=== PATIENT | male | born 1990 | race African-American/Black ===

== ENCOUNTER 2023-11-29 13:55 | Inpatient (IN) | payer OTHER ==
[~2023-11-29] VITALS: Ht 172.7 cm; Wt 93.0 kg
[2023-11-29] MEDS ORDERED: HYDROCODONE/APAP 10/325MG TABLET ONE (14:38)
[2023-11-29] MEDS: HYDROCODONE/APAP 10/325MG TABLET PO ONE (14:42)
[2023-11-29] MEDS ORDERED: MAGNESIUM HYDROXIDE 30 ML UDC PO PRN (17:30)
[2023-11-29] MEDS ORDERED: ZOLPIDEM TARTRATE 5 MG TABLET PO PRN (17:30)
[2023-11-29] MEDS ORDERED: ONDANSETRON HCL/PF 4 MG/2 ML VIAL IVP PRN (17:30)
[2023-11-29] MEDS ORDERED: Z GUARD REMEDY 4 OZ OINT TP PRN (17:30)
[2023-11-29 17:55] LABS: BASOPHILS % (AUTO) 0.4 % (0.0-2.0); EOSINOPHILS % (AUTO) 0.5 % (0.0-6.0); HEMATOCRIT 42 % (39-51); HEMOGLOBIN 14.5 g/dL (13.5-17.5); LYMPHOCYTES # (AUTO) 1.2 K/uL (0.8-4.8); LYMPHOCYTES % (AUTO) 14.5 % (20.0-44.0); MEAN CORPUSCULAR HEMOGLOBIN 29 PG (26.0-33.0); MEAN CORPUSCULAR HGB CONC 34 g/dl (31.0-36.0); MEAN CORPUSCULAR VOLUME 86 fL (80-96); MONOCYTES # (AUTO) 0.4 K/uL (0.1-1.30); MONOCYTES % (AUTO) 5.2 % (2.0-12.0); NEUTROPHILS # (AUTO) 6.3 K/uL (1.8-8.9); NEUTROPHILS % (AUTO) 79.4 % (43.0-81.0); PLATELET COUNT (AUTO) 200 K/uL (150-450); RED BLOOD CELL COUNT(AUTO) 4.95 MIL/uL (4.5-6.0); RED CELL DISTRIBUTION WIDTH 16.9 % (11.5-15.0)
[2023-11-29 18:11] LABS: INR 1.05 (0.91-1.10); PROTHROMBIN TIME 11.1 SECS (9.2-11.1)
[2023-11-29 18:37] LABS: ALBUMIN 3.5 g/dL (3.4-5.0); BILIRUBIN,TOTAL 0.5 mg/dL (0.2-1.0); CREATININE 1.3 mg/dL (0.6-1.3); TOTAL PROTEIN, SERUM 7.8 g/dL (6.4-8.2)
[2023-11-29 20:00] VITALS: BP 119/64; TEMP 98.2; O2SAT 97
[2023-11-29] MEDS: HYDROCODONE/APAP 10/325MG TABLET PO PRN (22:20)
[2023-11-30 07:04] LABS: CALCIUM, SERUM 8.6 mg/dL (8.5-10.1); CREATININE 1.3 mg/dL (0.6-1.3); MAGNESIUM 2.3 mg/dL (1.8-2.4); PHOSPHORUS 3.7 mg/dL (2.5-4.9); POTASSIUM 4.1 mmol/L (3.5-5.1)
[2023-11-30] MEDS: PANTOPRAZOLE 40 MG TABLET.DR PO SCH (07:30)
[2023-11-30 07:32] LABS: BASOPHILS % (AUTO) 0.4 % (0.0-2.0); EOSINOPHILS # (AUTO) 0.1 K/uL (0.0-0.7); EOSINOPHILS % (AUTO) 1.7 % (0.0-6.0); HEMATOCRIT 42 % (39-51); HEMOGLOBIN 13.9 g/dL (13.5-17.5); LYMPHOCYTES # (AUTO) 2.3 K/uL (0.8-4.8); LYMPHOCYTES % (AUTO) 31.9 % (20.0-44.0); MEAN CORPUSCULAR HEMOGLOBIN 29 PG (26.0-33.0); MEAN CORPUSCULAR HGB CONC 33 g/dl (31.0-36.0); MEAN CORPUSCULAR VOLUME 87 fL (80-96); MONOCYTES # (AUTO) 0.7 K/uL (0.1-1.30); MONOCYTES % (AUTO) 9.7 % (2.0-12.0); NEUTROPHILS % (AUTO) 56.3 % (43.0-81.0); PLATELET COUNT (AUTO) 205 K/uL (150-450); RED BLOOD CELL COUNT(AUTO) 4.81 MIL/uL (4.5-6.0); RED CELL DISTRIBUTION WIDTH 16.6 % (11.5-15.0); WHITE BLOOD COUNT (AUTO) 7.1 K/uL (4.3-11.0)
[2023-11-30 08:00] VITALS: BP 123/50; TEMP 97.9; O2SAT 98
[2023-11-30] MEDS ORDERED: POLYMYXIN B SULFATE 0 UNITS ONE (10:36)
[2023-11-30] MEDS ORDERED: VANCOMYCIN 1 GM VIAL ONE (10:36)
[2023-11-30] MEDS ORDERED: BUPIVACAINE 0.5 % PF 150 MG/30 ML VIAL ONE (10:36)
[2023-11-30] MEDS ORDERED: FENTANYL PF 100MCG/2ML AMPUL ONE (14:44)
[2023-11-30 16:00] VITALS: BP 140/67; TEMP 98.9; O2SAT 94
[2023-11-30] MEDS: IV D5/0.45 NACL W/20 MEQ KCL 1L IV PRN (16:24)
[2023-11-30] MEDS: HYDROCODONE/APAP 10/325MG TABLET PO PRN (19:15)
[2023-11-30 20:00] VITALS: BP 132/64; TEMP 98.8; O2SAT 98
[2023-11-30] MEDS: ANCEF 1 GM/50 ML D5W IV SCH (20:06)
[2023-11-30] MEDS: MORPHINE SULFATE INJ 4 MG/ML DISP.SYRIN IV PRN (20:26)
[2023-12-01] MEDS: MORPHINE SULFATE INJ 2 MG/ML DISP.SYRIN IV ONE (01:07)
[2023-12-01] MEDS: ACETAMINOPHEN 325 MG TABLET PO PRN (03:18)
[2023-12-01] MEDS: HYDROMORPHONE 1 MG/1 ML DISP.SYRIN IV ONE (04:49)
[2023-12-01 08:00] VITALS: BP 129/56; TEMP 98.6; O2SAT 96
[2023-12-01] MEDS: ENOXAPARIN SODIUM 40 MG/0.4 ML DISP.SYRIN SQ SCH (12:11)
[2023-12-01] MEDS: HYDROMORPHONE 1 MG/1 ML DISP.SYRIN IV PRN (12:38)
[2023-12-01 15:59] VITALS: BP 158/82; TEMP 97.9; O2SAT 96
[2023-12-01 20:00] VITALS: BP 140/73; TEMP 98.5; O2SAT 97
[2023-12-02 07:00] VITALS: BP 142/74; TEMP 99; O2SAT 99
[2023-12-02 07:16] LABS: BASOPHILS % (AUTO) 0.3 % (0.0-2.0); EOSINOPHILS # (AUTO) 0.1 K/uL (0.0-0.7); HEMATOCRIT 41 % (39-51); HEMOGLOBIN 13.7 g/dL (13.5-17.5); LYMPHOCYTES # (AUTO) 1.5 K/uL (0.8-4.8); LYMPHOCYTES % (AUTO) 19.8 % (20.0-44.0); MEAN CORPUSCULAR HEMOGLOBIN 29 PG (26.0-33.0); MEAN CORPUSCULAR HGB CONC 33 g/dl (31.0-36.0); MEAN CORPUSCULAR VOLUME 87 fL (80-96); MONOCYTES # (AUTO) 0.9 K/uL (0.1-1.30); NEUTROPHILS # (AUTO) 5.1 K/uL (1.8-8.9); NEUTROPHILS % (AUTO) 66.9 % (43.0-81.0); PLATELET COUNT (AUTO) 208 K/uL (150-450); RED BLOOD CELL COUNT(AUTO) 4.77 MIL/uL (4.5-6.0); RED CELL DISTRIBUTION WIDTH 16.5 % (11.5-15.0); WHITE BLOOD COUNT (AUTO) 7.7 K/uL (4.3-11.0)
[2023-12-02 07:31] LABS: CALCIUM, SERUM 8.3 mg/dL (8.5-10.1); MAGNESIUM 2.1 mg/dL (1.8-2.4); PHOSPHORUS 1.9 mg/dL (2.5-4.9)
[2023-12-02] MEDS ORDERED: HYDR-3980 PO (13:31)
[2023-12-02] MEDS ORDERED: ASPI-992 PO (13:31)
[2023-12-02] MEDS ORDERED: IV D5/0.45 NACL W/20 MEQ KCL 1L IV SCH (16:01)
== END 2023-12-02 14:51 | disposition home or self-care (01) | DRG 501 ==
LOC: ER 14:47 → MED 16:42
PROVIDERS: ADMIT Nurse Practitioner Family; ATTEND Nurse Practitioner Acute Care
PROC: 0LQR0ZZ Repair Left Knee Tendon, Open Approach (ICD-10-PCS; principal; 2023-11-30)
PROC: 0KQT0ZZ Repair Left Lower Leg Muscle, Open Approach (ICD-10-PCS; 2023-11-30)
DX: S76.112A Strain of left quadriceps muscle, fascia and tendon, initial encounter (principal); D68.59 Other primary thrombophilia; S86.222A Laceration of muscle(s) and tendon(s) of anterior muscle group at lower leg level, left leg, initial encounter; X50.0XXA Overexertion from strenuous movement or load, initial encounter; Y93.02 Activity, running; Y92.89 Other specified places as the place of occurrence of the external cause; Y99.0 Civilian activity done for income or pay; E66.01 Morbid (severe) obesity due to excess calories; M70.42 Prepatellar bursitis, left knee; Z68.31 Body mass index [BMI] 31.0-31.9, adult; Z74.09 Other reduced mobility
CPT/HCPCS: 36415; 71045-TC; 73552; 73564-TC; 73590-TC; 80048-TC; 80053-TC; 83735-TC; 84100-TC; 85025-TC; 85730-TC; 86850-TC; 97116-TC; 97530-TC; A4223; G0378; J0690; J1170; J1650; J1885; J2270; J2704; J3010; J3370; J3480; J3490; J7030; J7060